=== PATIENT | male | born 1945 | race Caucasian/White ===

== ENCOUNTER 2018-09-22 06:11 | Emergency (ER) | payer OTHER ==
[2018-09-22] MEDS ORDERED: ACETAMINOPHEN 500 MG TAB PO ONE (06:53)
[2018-09-22] MEDS ORDERED: IBUPROFEN 200 MG TAB PO ONE ×2 (06:53→07:45)
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
[2018-09-22 10:38] VITALS: BP 158/96
--- NOTE | 2018-09-22 16:43 | ASMTCMCOM ---
CM Note CM Note Notes: Pt presented to the ED by private vehicle for right hip pain. Pt had a mechanical fall down some stairs this morning and fell onto his right hip. Pt's CT showed minimally displaced right greater trochanter fracture. Ortho was consulted and they recommended pt to be fitted w/crutches and only do protected weight bearing on his right leg; pt was instructed to not drive until full weight bearing. Pt is in a rental car and is visiting [place] from [place], [place] to house sit for his sister. Pt is stating that he is going to drive the rental car back to his sister's house. This CM was requested to speak to pt and offer assistance w/safe transportation home via cab and also to help coordinate w/the rental car company for the car to be picked up. The pt said " I appreciate your recommendation and opinion but I am fine to drive." Again this CM attempted to persuade the pt to not drive due to the danger to himself and/or others on the road, and he still insisted that he will drive home. Pt was discharged by wheelchair out to his vehicle (which was brought to the ED entrance by brock) and assisted into his car. Pt aware that if he has any trouble driving or getting out of his vehicle once he arrives at the house, that he needs to call 911. Pt verbalizes understanding. Pt also states he will followup as directed. This CM attempted to followup with the pt and relay that the ortho specialist was consulted and he said it was okay for the pt to followup in [place]; but the phone # went to an anonymous voicemail and so no voicemail was left. Date Signed: 09/22/2018 04:42 PM Electronically Signed By:Yocasta Osman RN
--- NOTE | 2018-09-22 17:22 | ASDISCHSUM ---
Discharge Information Plan Status:Home with No Needs Medically Cleared to Leave: Discharge Date:09/22/2018 10:36 AM CM D/C Disposition:Home, Routine, Self-Care ADT D/C Disposition:Home, Routine, Self-Care Projected Discharge Date:09/22/2018 10:36 AM Transportation at D/C:Self Discharge Delay Reason: Follow-Up Date:09/22/2018 10:36 AM Discharge Slot: Final Diagnosis: Placement Information Patient Contact Information Contact Name:LIBORIO Relationship: Address:[address] Work Phone: [place] Phone: [facility]/Zip Code:[place] [address] Email: Financial Information Financial Class:Medicare Primary Plan Desc:MEDICARE OUTPATIENT Primary Plan Number:[id number] Secondary Plan Desc:[facility] Secondary Plan Number:[id number] Assessment Information [facility] CM Progress Note CM Note CM Note Notes: Pt presented to the ED by private vehicle for right hip pain. Pt had a mechanical fall down some stairs this morning and fell onto his right hip. Pt's CT showed minimally displaced right greater trochanter fracture. Ortho was consulted and they recommended pt to be fitted w/crutches and only do protected weight bearing on his right leg; pt was instructed to not drive until full weight bearing. Pt is in a rental car and is visiting [place] from [place], [place] to house sit for his sister. Pt is stating that he is going to drive the rental car back to his sister's house. This CM was requested to speak to pt and offer assistance w/safe transportation home via cab and also to help coordinate w/the rental car company for the car to be picked up. The pt said " I appreciate your recommendation and opinion but I am fine to drive." Again this CM attempted to persuade the pt to not drive due to the danger to himself and/or others on the road, and he still insisted that he will drive home. Pt was discharged by wheelchair out to his vehicle (which was brought to the ED entrance by brock) and assisted into his car. Pt aware that if he has any trouble driving or getting out of his vehicle once he arrives at the house, that he needs to call 911. Pt verbalizes understanding. Pt also states he will followup as directed. This CM attempted to followup with the pt and relay that the ortho specialist was consulted and he said it was okay for the pt to followup in [place]; but the phone # went to an anonymous voicemail and so no voicemail was left. Date Signed: 09/22/2018 04:42 PM Electronically Signed By:Yocasta Osman RN Intervention Information Intervention Type:Post Acute Communication Date of Service:09/22/2018 05:11 PM Patient Type:Emergency Room Staff Member:KATIE Osman, Yocasta Hours:0.25 Discipline:Project Development Manager Severity: Comment:Received a call back from the pt and stanley strickland said he made it home safely. Pt states he plan s on staying in [place] for about another wee k so he will plan on calling Dr Orellana on Tuesday to schedule a followup next week. Pt again reminded to not drive until pt has been cleared for full weightbearing on his right leg; pt recommended to call a cab for transportation needs. Pt verbalized understanding. Pt pleasant and appreciative of assistance.
== END 2018-09-22 10:36 | disposition home or self-care (01) ==
DX: S72.001A Fracture of unspecified part of neck of right femur, initial encounter for closed fracture (principal); W10.8XXA Fall (on) (from) other stairs and steps, initial encounter; Y92.007 Garden or yard of unspecified non-institutional (private) residence as the place of occurrence of the external cause; Z96.641 Presence of right artificial hip joint